=== PATIENT | male | born 1965 | race Two or more races ===

== ENCOUNTER 2025-01-06 09:42 | Emergency (ER) | payer MEDICAID, OTHER ==
[~2025-01-06] VITALS: Ht 185.4 cm; Wt 112.9 kg
[2025-01-06 09:58] VITALS: PULSE 56; RESP 19; O2SAT 95
--- NOTE | 2025-01-06 10:10 | ED.PDOC ---
SOB-HPI HPI Comments 59 y/o M, with PMHx of graves disease, COPD, DM, HLD, and CAD presents to the ED for CC of cough. Patient reports, he has been experiencing symptoms of shortness of breath with associated hemoptysis onset, Tuesday (01/04/25). Patient denies fever, chills, chest pain, palpitations, nausea, or vomiting. No other associated symptoms, modifiers, recent injuries or sick contacts present at this time. Chief Complaint: Cough Time Seen by MD: 10:00 Reviewed notes: Nurses Notes, Medications, Allergies Information Source: Patient Mode of Arrival: Ambulatory Severity: Mild Timing: Days Duration: Since onset Context: At Rest History of: COPD Prehospital treatment: None Modifying Factors: Nothing Associated Signs and Symptoms: Cough If cough with SOB: Bloody Past Medical History PAST MEDICAL HISTORY: CAD, COPD, DM, High Lipids Surgical History: Hernia Repair Family History Family History: Unknown Social History Smoker: Cigarettes Alcohol: Occasionally Drugs: Denies Drug Use Lives In: Home Constitutional: denies: chills, diaphoresis, fatigue, fever, malaise, sweats, weakness, others EENTM: denies: blurred vision, double vision, ear bleeding, ear discharge, ear drainage, ear pain, ear ringing, eye pain, eye redness, hearing loss, mouth pain, mouth swelling, nasal discharge, nose bleeding, nose congestion, nose pain, photophobia, tearing, throat pain, throat swelling, voice changes, others Respiratory: reports: hemoptysis, shortness of breath; denies: cough, orthopnea, SOB at rest, SOB with excertion, stridor, wheezing, others Cardiovascular: denies: chest pain, dizzy spells, diaphoresis, Dyspnea on exertion, edema, irregular heart beat, left arm pain, lightheadedness, palpitations, PND, syncope, others Gastrointestinal: denies: abdomen distended, abdominal pain, blood streaked bowels, constipated, diarrhea, dysphagia, difficulty swallowing, hematemesis, melena, nausea, poor appetite, poor fluid intake, rectal bleeding, rectal pain, vomiting, others Genitourinary: denies: burning, dysuria, flank pain, frequency, hematuria, incontinence, penile discharge, penile sore, pain, testicle pain, testicle swelling, urgency, others Neurological: denies: dizziness, fainting, headache, left sided numbness, left sided weakness, numbness, paresthesia, pre-existing deficit, right sided numbness, right sided weakness, seizure, speech problems, tingling, tremors, weakness, others Musculoskeletal: denies: back pain, gout, joint pain, joint swelling, muscle pain, muscle stiffness, neck pain, others Integumetry: denies: bruises, change in color, change in hair/nails, dryness, laceration, lesions, lumps, rash, wounds, others Allergic/Immunocompromised: denies: Difficulty Healing, Frequent Infections, Hives, Itching, others Hematologic/Lymphatic: denies: anemia, blood clots, easy bleeding, easy bruising, swollen glands, others Endocrine: denies: excessive hunger, excessive sweating, excessive thirst, excessive urination, flushing, intolerance to cold, intolerance to heat, unexplained weight gain, unexplained weight loss, others Psychiatric: denies: anxiety, bipolar disorder, depression, hopeless, panic disorder, schizophrenia, sleepless, suicidal, others All Other Systems: Reviewed and Negative Physical Exam General Appearance: No Apparent Distress, Normal HEENT: Normal ENT Inspection, Pharynx Normal, TMs Normal Neck: Full Range of Motion, Non-Tender, Normal, Normal Inspection Respiratory: Chest Non-Tender, Lungs Clear, No Accessory Muscle Use, No Respiratory Distress, Normal Breath Sounds Cardiovascular: No Edema, No JVD, No Murmur, No Gallop, Normal Peripheral Pulses, Regular Rate/Rhythm Breast Exam: Deferred Gastrointestinal: No Organomegaly, Non Tender, No Pulsatile Mass, Normal Bowel Sounds, Soft Genitalia: Deferred Pelvic: Deferred Rectal: Deferred Extremities: No calf tenderness, Normal capillary refill, Normal inspection, Normal range of motion, Non-tender, No pedal edema Musculoskeletal : Apperance: Normal Neurologic: Alert, movie critic II-XII nml as Tested, No Motor Deficits, Normal Affect, Normal Mood, No Sensory Deficits Cerebellar Function: Normal Reflexes: Normal Skin: Dry, Normal Color, Warm Lymphatic: No Adenopathy Was a procedure done? Was a procedure done?: No Differential Dx Differential Diagnosis: Bronchitis, Pneumonia, Sinusitis, Pharyngitis, URI, Other (influenza, covid-19) X-Ray, Labs, Meds, VS Vital Signs Date Time Temp Pulse Resp B/P (MAP) Pulse Ox O2 Delivery O2 Flow Rate FiO2 01/06/25 10:51 98.1 68 18 156/117 (130) 97 98.1 01/06/25 09:58 56 19 95 Room Air* 0 21 01/06/25 09:44 97.4 56 19 137/96 (110) 95 97.4 01/06/25 09:44 97.4 56 19 137/96 95 97.4 CHEST XY: IMPRESSION: 1. Patchy right mid and lower lung zone airspace disease compatible with pneumonia in the appropriate clinical setting. At this time, the patient has an oxygen saturation of 97% on room air The patient is being safely discharged with a diagnosis of right lower lobe pneumonia The patient was given a prescription of Zithromax The patient was also given a prescription of Medrol Dosepak The patient will return to the emergency department's the condition worsens Images Reviewed?: Images reviewed and evaluated by me Time of 1ST Reevaluation: 10:30 Reevaluation 1ST: Unchanged Patient Education/Counseling: Diagnosis, Treatment, Prognosis, Need For Follow Up Family Education/Counseling: No Family Present SEPSIS Sepsis Screen Date sepsis recognized/suspect: Jan 06, 2025 Time Sepsis recognized/suspect: 0958 Recent Procedure: No On Antibiotic Therapy: No Respiratory Rate >20: No Heart Rate >90: No Temp<36 C (96.8 F) or >38.3 C: No SBP <90 or MAP <65 mmHG: No New Acute Mental Status Change: No Is the patient on CPAP, BIPAP,: No Physician Orders Chest Two Views Routine (01/06/25 10:00) Vital Signs Date Time Temp Pulse Resp B/P (MAP) Pulse Ox O2 Delivery O2 Flow Rate FiO2 01/06/25 10:51 98.1 68 18 156/117 (130) 97 98.1 01/06/25 09:58 56 19 95 Room Air* 0 21 01/06/25 09:44 97.4 56 19 137/96 (110) 95 97.4 01/06/25 09:44 97.4 56 19 137/96 95 97.4 Departure 1 Departure Time of Disposition: 11:01 Impression: Primary Impression: Right lower lobe pneumonia Qualified Codes: J18.9 - Pneumonia, unspecified organism Additional Impression: COPD (chronic obstructive pulmonary disease) Qualified Codes: J44.9 - Chronic obstructive pulmonary disease, unspecified Disposition: 01 HOME / SELF CARE / HOMELESS Condition: Fair e-Prescriptions Azithromycin (Zithromax) 1 Gm Pow 1 PACK PO ONCE, #1 PACK Prov: PADMA FRANCO MD 01/06/25 Methylprednisolone (Medrol Dosepak) 4 Mg Jose Luis 4 MG PO UD, #21 TAB UAD Prov: PADMA FRANCO MD 01/06/25 Discharged With: Self Critical Care Note Critical Care Time?: No Stability Stability form required: No Heart Score Heart Score: Heart Score Response (Comments) Value History N/A 0 EKG N/A 0 Age N/A 0 Risk Factors N/A 0 Troponin N/A 0 Total 0 I personally scribed for PADMA FRANCO MD ([email or web address]) on 01/06/25 at 10:10. Electronically submitted by Carla Dyer ([email or web address]). I personally scribed for PADMA FRANCO MD ([email or web address]) on 01/06/25 at 10:45. Electronically submitted by Carla Dyer ([email or web address]). PADMA FRANCO MD Jan 06, 2025 10:10
--- NOTE | 2025-01-06 10:29 | DVH ---
XY CHEST TWO VIEWS ROUTINE CLINICAL HISTORY: Cough COMPARISON: None TECHNIQUE: Frontal and lateral view of the chest was obtained FINDINGS: Lines and Tubes: None Lungs: There is patchy right mid and lower lung zone airspace disease. Pleura: No effusion. No pneumothorax. Cardiomediastinal contours: Unremarkable Bones: No acute osseous abnormality. IMPRESSION: 1. Patchy right mid and lower lung zone airspace disease compatible with pneumonia in the appropriate clinical setting.
[2025-01-06 10:51] VITALS: BP 156/117; PULSE 68; RESP 18; TEMP 98.1; O2SAT 97
[2025-01-06] MEDS ORDERED: AZIT1POW PO (10:59)
[2025-01-06] MEDS ORDERED: METH4PAK PO (10:59)
== END 2025-01-06 11:25 | disposition home or self-care (01) ==
LOC: ER 09:47
DX: J18.9 Pneumonia, unspecified organism (principal); J44.9 Chronic obstructive pulmonary disease, unspecified; E11.9 Type 2 diabetes mellitus without complications; E78.5 Hyperlipidemia, unspecified; I25.10 Atherosclerotic heart disease of native coronary artery without angina pectoris; F17.210 Nicotine dependence, cigarettes, uncomplicated; Z79.899 Other long term (current) drug therapy
CPT/HCPCS: 71046